=== PATIENT | female | born 1960 | race Caucasian/White ===

== ENCOUNTER 2018-02-28 08:23 | Emergency (ER) | payer OTHER ==
[~2018-02-28] VITALS: Ht 154.9 cm; Wt 49.4 kg
[2018-02-28 08:26] VITALS: BP 126/69
--- NOTE | 2018-02-28 08:53 | ED GI/GU/ABDOMINAL COMPLAINT ---
History of Present Illness General Chief Complaint: General Adult Stated Complaint: RECTAL BLEED Source: patient Exam Limitations: no limitations Vital Signs & Intake/Output Vital Signs & Intake/Output Vital Signs Date Time Temp Pulse Resp B/P B/P Pulse O2 O2 Flow FiO2 Mean Ox Delivery Rate 02/28 0826 98.6 79 18 126/69 98 Room Air Allergies Coded Allergies: No Known Allergies (02/28/18) Triage Note: 58 YO FEMALE TO TRIAGE C/O BRB ON TOILET PAPER LAST PM AND THIS AM. DENIES ABD PAIN/NVD. STATES SHE DID HAVE TO TAKE A STOOL SOFTNER ON SATURDAY D/T CONSTIPATION AND LAST PM WAS THE FIRST BM SHE HAD SINCE TAKING THE SOFTNER. Triage Nurses Notes Reviewed? yes ? N Is pt currently ? No Onset: Abrupt Duration: day(s): (1), intermittent Timing: recent history HPI: 58-year-old female in the emergency room for further evaluation of bright red blood when she wipes. 2 separate times over the last 24 hours. Denies any gross blood. Denies any fever chills vomiting abdominal pain. Denies any anticoagulants. Denies any prior history. Denies any pain with bowel movements. Patient denies having a colonoscopy. Denies any lightheaded dizziness or syncopal episodes. (Rosales Shukla) Reconcile Medications No Known Home Medications (Kiran Lemus MD) Past History Travel History Traveled to [place] past 21 day No Medical History Any Pertinent Medical History? 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 No (Rosales Shukla) Review of Systems Review of Systems Constitutional: Reports: no symptoms. EENTM: Reports: no symptoms. Respiratory: Reports: no symptoms. Cardiovascular: Reports: no symptoms. GI: Reports: see HPI. Genitourinary: Reports: no symptoms. Musculoskeletal: Reports: no symptoms. Skin: Reports: no symptoms. Neurological/Psychological: Reports: no symptoms. Hematologic/Endocrine: Reports: no symptoms. Immunologic/Allergic: Reports: no symptoms. All Other Systems: Reviewed and Negative (Rosales Shukla) Physical Exam Physical Exam General Appearance: well developed/nourished, alert, awake Head: atraumatic, normal appearance Eyes: Bilateral: normal appearance. Ears, Nose, Throat, Mouth: hearing grossly normal, moist mucous membrane Neck: normal inspection Respiratory: normal breath sounds, no respiratory distress Cardiovascular: regular rate/rhythm Gastrointestinal: soft, non-tender Rectal: heme positive stool, EXTERNAL HEMORRHOID, BRIGHT RED BLOOD ONR ECTAL EXAM, Back: normal inspection Extremities: normal range of motion Neurologic/Psych: awake, alert, oriented x 3, normal gait, normal mood/affect Skin: intact, normal color Core Measures ACS in differential dx? No Sepsis Present: No Sepsis Focused Exam Completed? No (Rosales Shukla) Progress Differential Diagnosis: INTERNAL HEMORRHOID, EXTERNAL HEMORRHOID, DIVERTICULOSIS , ANGIODYSPLASIA, ANAL FISSURE, Plan of Care: Orders Procedure Date/time Status PARTIAL THROMBOPLASTIN TIME 02/28 08 Complete PROTHROMBIN TIME 02/28 08 Complete COMPREHENSIVE METABOLIC PANEL 02/28 08 Complete CBC WITHOUT DIFFERENTIAL 02/28 08 Complete Laboratory Tests 02/28/18 0903: Anion Gap 10, Estimated GFR > 60, BUN/Creatinine Ratio 33.3 H, Glucose 100 H, Calcium 9.6, Total Bilirubin 0.8, AST 22, ALT 23, Alkaline Phosphatase 69, Total Protein 6.9, Albumin 4.4, Globulin 2.5, Albumin/Globulin Ratio 1.8, PT 11.6, INR 1.06, APTT 27, CBC w Diff NO MAN DIFF REQ, RBC 3.96 L, MCV 89.3, MCH 31.7 H, MCHC 35.5, RDW 12.9, MPV 7.0 L, Gran % 69.2, Lymphocytes % 24.6, Monocytes % 5.0, Eosinophils % 0.9, Basophils % 0.3, Absolute Granulocytes 2.9, Absolute Lymphocytes 1.0 L, Absolute Monocytes 0.2, Absolute Eosinophils 0, Absolute Basophils 0 Initial ED EKG: none Comments: 02/28/2018 10:02:41 AM Patient is hemodynamically stable. Patient was sent to outpatient gastroenterology. Return immediately if any concerns worsening symptoms. Probably related to external hemorrhoid. Patient understands and agrees with plan of care. (Rosales Shukla) Departure Departure Disposition: HOME OR SELF CARE Condition: Stable Clinical Impression Primary Impression: Rectal bleeding Referrals: Julian ALONZO,Kiel Abraham MD,Romeo Hagen (PCP/Family) Additional Instructions: Follow-up with dry man provided. Return if any concerns worsening symptoms. Increase fiber in diet. Please go over all results of today's visit with your primary care doctor. Contact your primary care doctor to let them know you were here in the emergency room. There may be nonspecific findings which may not be related to your visit today here in the emergency room but may require further evaluation and chronic monitoring by your primary care doctor. If you had a laceration today the chance of foreign body always remains. You should follow-up with your primary care doctor for recheck in 3-5 days for a wound check. If you had an x-ray done there is a chance that a fracture could have been missed on initial read and you should follow-up with your primary care doctor for repeat x-rays if symptoms persist. If your blood pressure was elevated here in the emergency room please have rechecked by [facility] primary care doctor within the next 48. If you were prescribed a narcotic here in the emergency room or any type of controlled substances you're not allowed to drive while taking this medication or operate any type of heavy machinery. Narcotics can make you feel lightheaded dizziness nausea and can cause constipation. You may need to slate picker a stool softener. Thank you for choosing [facility] emergency room. Please return to the emergency room immediately if you have any other concerns worsening of symptoms. Departure Forms: Customer Survey General Discharge Information (Rosales Shukla) Departure Prescriptions: Current Visit Scripts No Known Home Medications PA/TILE MECHANIC Co-Sign Statement Statement: ED Attending supervision documentation- I saw and evaluated the patient. I have also reviewed all the pertinent lab results and diagnostic results. I agree with the findings and the plan of care as documented in the PA's/TILE MECHANIC's documentation. x I have reviewed the ED Record and agree with the PA's/TILE MECHANIC's documentation. [] Additions or exceptions (if any) to the PAs/TILE MECHANIC's note and plan are summarized below: [] (Allan ALONZO,Kiran)
[2018-02-28 09:09] LABS: ABSOLUTE BASOPHIL COUNT 0 /CUMM (0.0-0.2); ABSOLUTE EOSINOPHIL COUNT 0 /CUMM (0.0-0.7); ABSOLUTE GRANULOCYTE CT 2.9 /CUMM (1.4-6.5); ABSOLUTE MONOCYTE COUNT 0.2 /CUMM (0.10-0.60); BASOPHIL % 0.3 % (0.0-2.0); EOSINOPHIL % 0.9 % (0-5); GRANULOCYTE % 69.2 % (42.2-75.2); HEMATOCRIT 35.3 % (37-47); MEAN CORPUSCULAR HGB 31.7 PG (27.0-31.0); MEAN CORPUSCULAR HGB CONC 35.5 G/DL (33.0-37.0); MEAN CORPUSCULAR VOLUME 89.3 FL (81.0-99.0); PLATELET COUNT 242 /CUMM (130-400); RBC DISTRIBUTION WIDTH 12.9 % (11.5-14.5); RED BLOOD CELL CT 3.96 /CUMM (4.20-5.40); WHITE BLOOD CELL COUNT 4.2 /CUMM (4.8-10.8)
[2018-02-28 09:18] LABS: PT 11.6 SEC (9.4-12.5); PTT 27 SEC (25-37)
== END 2018-02-28 10:16 ==
LOC: ERH 08:23
PROVIDERS: Physician Assistant Medical
DX: K62.5 Hemorrhage of anus and rectum (principal)